=== PATIENT | male | born 1990 | race African-American/Black ===

== ENCOUNTER 2017-05-15 10:49 | Emergency (ER) | payer SELFPAY ==
[2017-05-15 11:34] LABS: #Basophils 0.1 thou/uL (0.0-0.2); #Eosinphils 0.4 thou/uL (0.0-0.7); #Lymphocytes 1.8 thou/uL (1.20-3.40); #Monocytes 0.7 thou/uL (0.11-0.59); #Neutrophils 2.5 thou/uL (1.40-6.50); %Basophils 1.5 % (0.0-1.0); %Monocytes 11.9 % (0.0-10.0); Hematocrit 44.4 % (42.0-52.0); Mean Platelet Volume 7.5 fL (7.4-10.4); Red Blood Cell (RBC) Count 4.94 mill/uL (4.70-6.10); White Blood Cell (WBC) Count 5.4 thou/uL (4.8-10.8)
[2017-05-15 11:55] LABS: Acetaminophen Less than 6.0 mcg/mL (10.0-30.0); Salicylate Less than 8.0 mg/dL (15.0-30.0)
[2017-05-15 11:56] LABS: ALT (SGPT) 11 U/L (8-55); AST (SGOT) 19 U/L (5-34); Alkaline Phosphatase 80 U/L (40-150); Anion Gap 13 mmol/L (10-20); BUN (Urea Nitrogen) 10 mg/dL (8.9-20.6); Bilirubin, Total 0.3 mg/dL (0.2-1.2); CK (CPK) 283 U/L (30-200); Calc. Creatinine Clearance 0 mL/min (70-130); Calcium 9.8 mg/dL (7.8-10.44); Carbon Dioxide 25 mmol/L (22-29); Chloride 103 mmol/L (98-107); Estimated GFR-MDRD Greater than 90; Globulin 3.8 g/dL (2.4-3.5)
[2017-05-15 12:11] LABS: Bilirubin Negative (Negative); Blood, Urine Negative (Negative); Glucose, Urine (Dipstick) Negative (Negative); Ketone, Urine Negative (Negative); Nitrite Negative (Negative); Protein, Urine (Dipstick) Negative (Neg-Trace); Urobilinogen 0.2 mg/dL (0.2-1.0)
[2017-05-15] MEDS ORDERED: busPIRone HCl 10 MG TAB PO SCH ×2 (12:15→21:00)
[2017-05-15 12:20] LABS: Amphetamine Not Detected (NotDetected); Methadone Not Detected (NotDetected); Methamphetamine Not Detected (NotDetected)
[2017-05-15] MEDS ORDERED: Bupivacaine PF 0.5% 30 ML VIAL ONE (16:57)
[2017-05-15] MEDS ORDERED: Betamet Acet/Betamet Na Ph 30 MG/5 ML VIAL ONE (16:57)
[2017-05-15] MEDS ORDERED: Sodium Chloride 0.9% 0 ML ONE (16:57)
[2017-05-15] MEDS ORDERED: Bacitracin Zinc Ointment 30 gm TUBE ONE (16:57)
[2017-05-15] MEDS ORDERED: Acetaminophen 500 MG TAB ONE (17:11)
== END 2017-05-15 22:14 ==
LOC: ERS 10:49
DX: R45.851 Suicidal ideations (principal); J45.909 Unspecified asthma, uncomplicated; F31.9 Bipolar disorder, unspecified; F41.9 Anxiety disorder, unspecified; F20.9 Schizophrenia, unspecified; F17.210 Nicotine dependence, cigarettes, uncomplicated; Z79.899 Other long term (current) drug therapy
CPT/HCPCS: 36415; 80053; 80306; 80307; 81003; 82550; 84443; 85025; 93005; A4216; J0702; J3490; S0020

== ENCOUNTER 2017-10-05 13:20 | Emergency (ER) | payer SELFPAY ==
[2017-10-05] MEDS ORDERED: Ibuprofen 200 MG TAB ONE (14:07)
[2017-10-05] MEDS ORDERED: Dexamethasone 4 mg/ml Vial ONE (14:07)
--- NOTE | 2017-10-05 14:18 | RAD ---
TWO VIEWS CHEST: DATE: 10/05/17. PROVIDED CLINICAL HISTORY: Cough. FINDINGS: Comparison is made with the study dated 11/05/2003. Cardiac and mediastinal silhouette is within norm al limits. Lungs appear clear. There is no pleural fluid or pneumothorax apparent. IMPRESSION: No evidence for an acute cardiopulmonary process. POS: [facility]
== END 2017-10-05 14:26 | disposition home or self-care (01) ==
LOC: ERS 13:20
DX: J20.8 Acute bronchitis due to other specified organisms (principal); J45.909 Unspecified asthma, uncomplicated; F31.9 Bipolar disorder, unspecified; F41.9 Anxiety disorder, unspecified; F20.9 Schizophrenia, unspecified; F17.210 Nicotine dependence, cigarettes, uncomplicated
CPT/HCPCS: 71046; J1100

== ENCOUNTER 2018-03-16 09:08 | Inpatient (IN) | payer SELFPAY ==
[2018-03-16 10:20] LABS: Bilirubin Negative (Negative); Blood, Urine Negative (Negative); Clarity CLEAR (Clear); Glucose, Urine (Dipstick) Negative (Negative); Leukocyte Negative (Negative); Nitrite Negative (Negative); Protein, Urine (Dipstick) Negative (Neg-Trace); pH, Urine 5.5 (5.0-9.0)
[2018-03-16 10:31] LABS: Amphetamine Not Detected (NotDetected); Barbiturates Screen Not Detected (NotDetected); Benzodiazepine Screen Not Detected (NotDetected); Cocaine Metabolite Screen Detected (NotDetected); Medtox Control Line Valid? VALID (VALID); Medtox Reader # READER 1; Methadone Not Detected (NotDetected); Methamphetamine Not Detected (NotDetected); Opiate Screen Not Detected (NotDetected); Oxycodone Screen Not Detected (NotDetected); Phencyclidine (PCP) Not Detected (NotDetected); THC/Cannabinoid Screen Not Detected (NotDetected); Tricyclic Screen Not Detected (NotDetected)
[2018-03-16 11:17] LABS: Hemoglobin 13.7 g/dL (14.0-18.0); Mean Corpuscular Hemoglobin 29.3 pg (27.0-31.0); Mean Platelet Volume 7.8 fL (7.4-10.4); Platelet Count 226 thou/uL (130-400); RBC Distribution Width 11.8 % (11.5-14.5); White Blood Cell (WBC) Count 6.4 thou/uL (4.8-10.8)
[2018-03-16 11:26] LABS: ALT (SGPT) 25 U/L (8-55); AST (SGOT) 67 U/L (5-34); Acetaminophen Less than 6.0 mcg/mL (10.0-30.0); Albumin 4.8 g/dL (3.5-5.0); Alcohol Less than 10 mg/dL (Less than 10); Alkaline Phosphatase 92 U/L (40-150); Anion Gap 15 mmol/L (10-20); BUN (Urea Nitrogen) 27 mg/dL (8.9-20.6); Bilirubin, Total 0.6 mg/dL (0.2-1.2); Calc. Creatinine Clearance 0 mL/min (70-130); Calcium 9.8 mg/dL (7.8-10.44); Carbon Dioxide 24 mmol/L (22-29); Chloride 99 mmol/L (98-107); Estimated GFR-MDRD 70; Globulin 3.7 g/dL (2.4-3.5); Glucose 114 mg/dL (70-105); Potassium 4.4 mmol/L (3.5-5.1); Protein, Total 8.5 g/dL (6.0-8.3); Salicylate Less than 8.0 mg/dL (15.0-30.0); Sodium 134 mmol/L (136-145)
[2018-03-16 11:37] LABS: Band 4 % (5-11); Eosinophils 1 % (0-10); Lymphocytes 27 % (21-51); MDiff Complete? YES; Monocytes 3 % (0-10); Neutrophil 54 % (42-75); RBC Morphology Normal; Reactive Lymphocytes 11 % (0-10)
[2018-03-16] MEDS ORDERED: Acetaminophen 325 MG TAB PO PRN (14:21)
[2018-03-16] MEDS ORDERED: Loperamide HCl 2 MG CAP PO PRN (14:21)
[2018-03-16] MEDS ORDERED: Senokot 8.6 MG TAB PO PRN (14:21)
[2018-03-16] MEDS ORDERED: Milk Of Magnesia 30 ML UDCUP PO PRN (14:21)
[2018-03-16] MEDS ORDERED: Eucerin (Mineral Oil/Petrolatum,White) 30 gm Jar TOP PRN (14:21)
[2018-03-16] MEDS ORDERED: Zolpidem Tartrate 5 MG TAB PO PRN (14:21)
[2018-03-16] MEDS ORDERED: Artificial Tear Sol 15 ML BOT EA EYE PRN (14:21)
[2018-03-16] MEDS ORDERED: Loratadine 10 MG TAB PO PRN (14:21)
[2018-03-16] MEDS ORDERED: Ondansetron HCl/PF 4 MG/2 ML Vial IVP PRN (14:21)
[2018-03-16] MEDS ORDERED: cloNIDine 0.1 MG TAB PO PRN (14:21)
[2018-03-16] MEDS ORDERED: Chloraseptic Spray 180 ml Bottle PO PRN (14:21)
[2018-03-16] MEDS ORDERED: HYDROcodone/Acetaminophen 5/325 mg Tablet PO PRN (14:21)
[2018-03-16] MEDS ORDERED: Diabetic Tussin 200 MG/10 ML UDCUP PO PRN (14:21)
[2018-03-16] MEDS ORDERED: Ondansetron ODT 4 MG TAB PO PRN (14:21)
[2018-03-16] MEDS ORDERED: Sodium Chloride 0.65% Nasal 44 ML BOT EA NARE PRN (14:21)
[2018-03-16 14:28] VITALS: BMI 30.1
--- NOTE | 2018-03-16 14:49 | HP ---
PRIMARY CARE PHYSICIAN: City call admission. REASON FOR ADMISSION: Acute kidney failure, acute rhabdomyolysis, homicidal and suicidal ideation. HISTORY OF PRESENT ILLNESS: This is a 28-year-old -[place] male, who was brought to emergency room by police department for medical clearance. The patient has underlying history of schizophrenia as well as polysubstance abuse. The patient used cocaine yesterday. He was having hallucination. The patient reports that he has visual and auditory hallucinations. He has underlying psychiatric problem and he was not able to take any medication for the last several weeks. He was recently in [facility] and he was recently released from [facility]. His prescription was sent to [facility], but he was not able to pick it up. At home, he was feeling homicidal as well as suicidal and he planned to stab himself with a knife, and as per report, the patient gave his knife to [facility]. The patient was not medically stable for discharge from emergency room, because of acute kidney failure and rhabdomyolysis. The patient was continued to have suicidal and homicidal ideation in the emergency room when I was getting history from him. The patient denies any chest pain, palpitations, shortness of breath. He denies any dizziness, UTI symptoms, constipation, diarrhea. Patient reports that he snorted cocaine through his left side of nostril that a little bit hurts. He denies any sinus headaches. He denies any constipation, diarrhea, melena, or hematochezia. In the emergency room, patient was given IV fluid. Subsequently, patient is being admitted to the medical floor for treatment. REVIEW OF SYSTEMS: The following complete review of systems was negative, unless otherwise mentioned in the HPI or below: Constitutional: Weight loss or gain, ability to conduct usual activities. Skin: Rash, itching. Eyes: Double vision, pain. ENT/Mouth: Nose bleeding, neck stiffness, pain, tenderness. Cardiovascular: Palpitations, dyspnea on exertion, orthopnea. Respiratory: Shortness of breath, wheezing, cough, hemoptysis, fever, or night sweats. Gastrointestinal: Poor appetite, abdominal pain, heartburn, nausea, vomiting, constipation, or diarrhea. Genitourinary: Urgency, frequency, dysuria, nocturia. Musculoskeletal: Pain, swelling. Neurologic/Psychiatric: Anxiety, depression. Allergy/Immunologic: Skin rash, bleeding tendency. Please see my HPI for pertinent positive and negative. All other review of system reviewed and negative except as mentioned in the HPI. PAST MEDICAL HISTORY: History of asthma/bronchitis. History of sickle cell trait. PAST PSYCHIATRIC HISTORY: Anxiety disorder, depression, bipolar disorder, schizophrenia, history of suicidal attempts by hanging, history of suicidal attempt by ingesting rat poison in 2006 as well as in 2010. PAST SURGICAL HISTORY: Tonsillectomy and adenectomy. SOCIAL HISTORY: Patient smokes everyday basis. He abuses cocaine and marijuana periodically. He drinks alcohol every weekend. He smokes about a half-pack per day. FAMILY HISTORY: No strong family history of premature coronary artery disease, stroke, or cancer. ALLERGIES: No known drug allergy. CURRENT HOME MEDICATIONS: Seroquel 200 mg p.o. b.i.d., Cymbalta 20 mg daily, buspirone 7.5 mg p.o. b.i.d., gabapentin 300 mg twice daily. EMERGENCY ROOM COURSE: The patient has received IV fluid. PHYSICAL EXAMINATION: VITAL SIGNS: On arrival, blood pressure 126/94, pulse 88, respiratory rate 20, temperature 98.6, saturation 98% on room air, weight 74.8 kilograms. GENERAL: The patient is currently alert, awake, in no obvious acute distress. HEENT: Head: Normocephalic, atraumatic. Eyes: Pupils round, reactive to light. Conjunctivae erythematous. No discharge. No nystagmus. ENT: Left side of nose covered with a cotton. Moist mucous membranes. No oral lesion. No pharyngeal erythema, no exudate. NECK: Supple, no JVD, no thyromegaly, no carotid bruit, no jugular venous distention. LUNGS: Clear to auscultation without any rhonchi or rales. CARDIAC: S1 and S2 regular. No murmur, no gallop, no rub. ABDOMEN: Soft, bowel sounds present. Abdominal wall discomfort noted, but no peritoneal sign, no guarding, no rigidity, no rebound, no organomegaly, no mass , no suprapubic tenderness. BACK EXAMINATION: Unremarkable, no CVA tenderness. EXTREMITIES: Upper extremities, passive movement of all joints are normal. Lower extremities, no edema. Good peripheral pulsation. SKIN: No skin rash. HEMATOLOGICAL SYSTEM: No lymphadenopathy. PSYCHIATRIC: Normal affect. The patient has suicidal and homicidal ideation. SIGNIFICANT LABORATORY DATA: 1. EKG showing sinus arrhythmia, normal sinus rhythm. 2. Urine drug screen positive for cocaine. 3. Urinalysis normal. 4. CBC: WBC 6.4, hemoglobin 13.7, platelets 226 with bandemia 4. 5. BMP: Sodium 134, potassium 4.4, chloride 99, carbon dioxide 24, BUN 27, creatinine 1.46, anion gap 15, glucose 114, calcium 9.8. 6. LFT: AST 67, ALT 25, alkaline phosphatase 92, albumin 4.8. 7. TSH 3.08. 8. CK of 5667. 9. Serum drug screen negative. ASSESSMENT AND PLAN: 1. Acute rhabdomyolysis, most likely related with the cocaine abuse. The patient's total CK is significantly abnormal. He has associated acute kidney injury. The patient is at risk for acute kidney failure. The patient will need hydration. The patient will need monitoring of total CK level. The patient will be given IV fluid with NS at 125 mL per hour. We will monitor CK level and renal function. 2. Acute kidney injury, likely due to dehydration/cocaine abuse/ rhabdomyolysis. The patient will be given gentle IV fluid and we will repeat BMP tomorrow. We will avoid nephrotoxin agent. 3. Abnormal liver function tests, AST more than ALT, likely due to his alcohol use plus rhabdomyolysis. We will repeat labs tomorrow. 4. Mild hyponatremia, likely due to dehydration. Patient will be given IV fluid and we will repeat BMP tomorrow. 5. Bandemia, likely related with us cocaine abuse. Does not have any clinical evidence of sepsis at this point. 6. Polysubstance abuse. Patient has smoking, alcohol, marijuana, and cocaine abuse history. The patient is given counseling to avoid polysubstance abuse. Healthy lifestyle measures discussed with the patient. 7. Homicidal and suicidal ideation. Once patient is medically cleared, at that point we will consult [facility] again and patient will need inpatient psychiatric facility treatment after discharge. We will provide suicide precaution while in hospital. 8. Anxiety, depression, bipolar disorder, as well as schizophrenia. We will continue patient's home medications, Seroquel, Cymbalta, buspirone, and gabapentin as per home dosage. 9. Deep venous thrombosis prophylaxis. Lovenox 40 mg subcutaneous daily. 10. Gastrointestinal prophylaxis. Pepcid 20 mg p.o. b.i.d. 11. Code status: The patient is FULL CODE. Patient does not have any surrogate decision maker. Disposition plan based on clinical course. We are expecting patient's stay in hospital more than 2 midnights. Plan of care discussed with the patient in detail. KWESI
[2018-03-16] MEDS: Sodium Chloride 0.9% 1,000 ML IV SCH (16:34)
[2018-03-16] MEDS: busPIRone HCl 5 MG TAB PO SCH (22:17)
[2018-03-16] MEDS: Gabapentin 300 MG CAP PO SCH (22:17)
[2018-03-16] MEDS: Famotidine 20 MG TAB PO SCH (22:18)
[2018-03-17] MEDS: Sodium Chloride 0.9% 1,000 ML IV SCH ×4 (01:35→20:56)
[2018-03-17 04:57] LABS: #Eosinphils 0.3 thou/uL (0.0-0.7); #Lymphocytes 1.8 thou/uL (1.20-3.40); #Monocytes 0.5 thou/uL (0.11-0.59); #Neutrophils 1.2 thou/uL (1.40-6.50); %Eosinophils 7.6 % (0.0-10.0); %Lymphocytes 46.7 % (21.0-51.0); %Monocytes 13.3 % (0.0-10.0); %Neutrophils 31.4 % (42.0-75.0); Hemoglobin 11.7 g/dL (14.0-18.0); Mean Corpuscular HGB CONC 34.9 g/dL (32.0-36.0); Mean Corpuscular Volume 85.8 fL (78.0-98.0); Mean Platelet Volume 7.9 fL (7.4-10.4); Platelet Count 194 thou/uL (130-400); RBC Distribution Width 11.7 % (11.5-14.5); Red Blood Cell (RBC) Count 3.91 mill/uL (4.70-6.10); White Blood Cell (WBC) Count 3.8 thou/uL (4.8-10.8)
[2018-03-17 05:14] LABS: Anion Gap 14 mmol/L (10-20); BUN (Urea Nitrogen) 13 mg/dL (8.9-20.6); CK (CPK) 3232 U/L (30-200); Calc. Creatinine Clearance 125 mL/min (70-130); Calcium 8.4 mg/dL (7.8-10.44); Carbon Dioxide 19 mmol/L (22-29); Chloride 111 mmol/L (98-107); Estimated GFR-MDRD Greater than 90; Glucose 102 mg/dL (70-105); Potassium 4.1 mmol/L (3.5-5.1); Sodium 140 mmol/L (136-145)
[2018-03-17] MEDS: busPIRone HCl 5 MG TAB PO SCH ×2 (09:23→20:54)
[2018-03-17] MEDS: Famotidine 20 MG TAB PO SCH ×2 (09:24→20:54)
[2018-03-17] MEDS: Gabapentin 300 MG CAP PO SCH ×2 (09:24→20:54)
[2018-03-17] MEDS: Enoxaparin Sodium 40 MG/0.4 ML SYRINGE SC SCH (09:26)
--- NOTE | 2018-03-17 12:00 | PDOC.PN ---
- Subjective Encounter Start Date: 03/17/18 Encounter Start Time: 08:40 -: old records requested/rev Patient seen and examined. No new complaints. No overnight events - Objective Resuscitation Status: Resuscitation Status FULL:Full Resuscitation MAR Reviewed: Yes Vital Signs & Weight: Vital Signs (12 hours) Temp Pulse Resp BP BP Pulse Ox 03/17/18 11:13 98.6 F 77 18 109/71 96 03/17/18 08:00 98.2 F 67 18 97 03/17/18 07:39 98.2 F 67 18 120/74 97 03/17/18 04:00 98.7 F 72 16 109/69 96 03/17/18 00:00 98.9 F 84 18 117/67 96 Weight Weight 164 lb 14.492 oz I&O: 03/16/18 03/17/18 03/18/18 06:59 06:59 06:59 Intake Total 360 500 Balance 360 500 Result Diagrams: 03/17/18 03:53 03/17/18 03:53 Phys Exam - Physical Examination Constitutional: NAD HEENT: PERRLA, moist MMs, sclera anicteric Neck: no JVD, supple Respiratory: no wheezing, no rales, no rhonchi Cardiovascular: RRR, no significant murmur, no rub Gastrointestinal: soft, non-tender, no distention, positive bowel sounds Musculoskeletal: no edema, pulses present Neurological: non-focal, normal sensation, moves all 4 limbs Lymphatic: no nodes Psychiatric: normal affect, A&O x 3 Skin: no rash, normal turgor Dx/Plan (1) Acute kidney failure Status: Resolved (2) Homicidal ideation Code(s): R45.850 - HOMICIDAL IDEATIONS Status: Acute (3) Polysubstance abuse Code(s): F19.10 - OTHER PSYCHOACTIVE SUBSTANCE ABUSE, UNCOMPLICATED Status: Acute (4) Rhabdomyolysis Code(s): M62.82 - RHABDOMYOLYSIS Status: Acute (5) Suicidal ideations Code(s): R45.851 - SUICIDAL IDEATIONS Status: Acute (6) Anxiety and depression Code(s): F41.9 - ANXIETY DISORDER, UNSPECIFIED; F32.9 - MAJOR DEPRESSIVE DISORDER, SINGLE EPISODE, UNSPECIFIED Status: Chronic (7) Schizophrenia Code(s): F20.9 - SCHIZOPHRENIA, UNSPECIFIED Status: Chronic - Plan cont current plan of care * continue IVF * repeat CK level tomorrow * medication reviewed as below * symptomatic treatment * will call MR when pt is medically stable * will need in psych facility. Review of Systems - Review of Systems Eyes: negative: Pain, Vision Change, Conjunctivae Inflammation, Eyelid Inflammation, Redness, Other ENT: negative: Ear Pain, Ear Discharge, Nose Pain, Nose Discharge, Nose Congestion, Mouth Pain, Mouth Swelling, Throat Pain, Throat Swelling, Other Respiratory: negative: Cough, Dry, Shortness of Breath, Hemoptysis, SOB with Excertion, Pleuritic Pain, Sputum, Wheezing Cardiovascular: negative: chest pain, palpitations, orthopnea, paroxysmal nocturnal dyspnea, edema, light headedness, other Gastrointestinal: negative: Nausea, Vomiting, Abdominal Pain, Diarrhea, Constipation, Melena, Hematochezia, Other Genitourinary: negative: Dysuria, Frequency, Incontinence, Hematuria, Retention , Other Musculoskeletal: negative: Neck Pain, Shoulder Pain, Arm Pain, Back Pain, Hand Pain, Leg Pain, Foot Pain, Other Skin: negative: Rash, Lesions, Jordan, Bruising, Other - Medications/Allergies Allergies/Adverse Reactions: Allergies Allergy/AdvReac Type Severity Reaction Status Date / Time No Known Allergies Allergy Verified 03/16/18 14:48 Medications: Current Medications Acetaminophen (Tylenol) 650 mg PO Q4H PRN PRN Reason: Headache/Fever or Pain Hydrocodone Bitart/Acetaminophen ([place] 5/325) 1 tab PO Q4H PRN PRN Reason: Moderate Pain (4-6) Artificial Tears (Tears Renewed 15ml Bottle) 0 drop EA EYE PRN PRN PRN Reason: Dry Eyes Buspirone HCl (Buspar) 7.5 mg PO BID [facility] Last Admin: 03/17/18 09:23 Dose: 7.5 mg Clonidine (Catapres) 0.1 mg PO Q4H PRN PRN Reason: Systolic BP > 180 Duloxetine HCl (Cymbalta) 20 mg PO DAILY [facility] Last Admin: 03/17/18 09:24 Dose: 20 mg Enoxaparin Sodium (Lovenox) 40 mg SC 0900 [facility] Last Admin: 03/17/18 09:26 Dose: Not Given Famotidine (Pepcid) 20 mg PO BID [facility] Last Admin: 03/17/18 09:24 Dose: 20 mg Gabapentin (Neurontin) 300 mg PO BID [facility] Last Admin: 03/17/18 09:24 Dose: 300 mg Guaifenesin (Robitussin Sf) 200 mg PO Q4H PRN PRN Reason: Cough Sodium Chloride (Normal Saline 0.9%) 1,000 mls @ 125 mls/hr IV .Q8H [facility] Last Admin: 03/17/18 09:36 Dose: 1,000 mls Loperamide HCl (Imodium) 2 mg PO PRN PRN PRN Reason: Diarrhea/Loose Stools Loratadine (Claritin) 10 mg PO DAILYPRN PRN PRN Reason: Sinus Symptoms Magnesium Hydroxide (Milk Of Magnesium) 30 ml PO DAILYPRN PRN PRN Reason: Constipation Mineral Oil/White Petrolatum (Eucerin Cream) 0 gm TOP BIDPRN PRN PRN Reason: Dry Skin Ondansetron HCl (Zofran Odt) 4 mg PO Q6H PRN PRN Reason: Nausea/Vomiting Ondansetron HCl (Zofran) 4 mg IVP Q6H PRN PRN Reason: Nausea/Vomiting Phenol (Chloraseptic [place] 180 Ml Bot) 0 ml PO PRN PRN PRN Reason: Sore Throat Quetiapine Fumarate (Seroquel) 200 mg PO BID [facility] Last Admin: 03/17/18 09:24 Dose: 200 mg Senna (Senokot) 2 tab PO HSPRN PRN PRN Reason: Constipation Sodium Chloride ([place] Nasal [place] 0.65%) 0 ml EA NARE QIDPRN PRN PRN Reason: Nasal Congestion Zolpidem Tartrate (Ambien) 5 mg PO HSPRN PRN PRN Reason: Insomnia
[2018-03-18] MEDS: Sodium Chloride 0.9% 1,000 ML IV SCH ×3 (03:59→20:44)
[2018-03-18] MEDS: busPIRone HCl 5 MG TAB PO SCH ×2 (08:14→20:43)
[2018-03-18] MEDS: Gabapentin 300 MG CAP PO SCH ×2 (08:14→20:43)
[2018-03-18] MEDS: Famotidine 20 MG TAB PO SCH ×2 (08:16→20:44)
[2018-03-18] MEDS: Enoxaparin Sodium 40 MG/0.4 ML SYRINGE SC SCH (08:16)
--- NOTE | 2018-03-18 11:24 | PDOC.PN ---
- Subjective Encounter Start Date: 03/18/18 Encounter Start Time: 09:15 Patient seen and examined. No new complaints. No overnight events - Objective Resuscitation Status: Resuscitation Status FULL:Full Resuscitation MAR Reviewed: Yes Vital Signs & Weight: Vital Signs (12 hours) Temp Pulse Resp BP Pulse Ox 03/18/18 08:05 98.1 F 69 16 96 03/18/18 07:41 98.1 F 69 16 126/82 96 Weight Weight 164 lb 14.492 oz I&O: 03/17/18 03/18/18 03/19/18 06:59 06:59 06:59 Intake Total 360 900 Balance 360 900 Result Diagrams: 03/17/18 03:53 03/17/18 03:53 Phys Exam - Physical Examination Constitutional: NAD HEENT: PERRLA, moist MMs, sclera anicteric Neck: no JVD, supple Respiratory: no wheezing, no rales, no rhonchi Cardiovascular: RRR, no significant murmur, no rub Gastrointestinal: soft, non-tender, no distention, positive bowel sounds Musculoskeletal: no edema, pulses present Neurological: non-focal, normal sensation Lymphatic: no nodes Psychiatric: normal affect, A&O x 3 Skin: no rash, normal turgor Dx/Plan (1) Acute kidney failure Status: Resolved (2) Homicidal ideation Code(s): R45.850 - HOMICIDAL IDEATIONS Status: Acute (3) Polysubstance abuse Code(s): F19.10 - OTHER PSYCHOACTIVE SUBSTANCE ABUSE, UNCOMPLICATED Status: Acute (4) Rhabdomyolysis Code(s): M62.82 - RHABDOMYOLYSIS Status: Acute (5) Suicidal ideations Code(s): R45.851 - SUICIDAL IDEATIONS Status: Acute (6) Anxiety and depression Code(s): F41.9 - ANXIETY DISORDER, UNSPECIFIED; F32.9 - MAJOR DEPRESSIVE DISORDER, SINGLE EPISODE, UNSPECIFIED Status: Chronic (7) Schizophrenia Code(s): F20.9 - SCHIZOPHRENIA, UNSPECIFIED Status: Chronic - Plan cont current plan of care * CK improving * continue IVF * will recheck CK tomorrow * if number is OK, tomorrow will consult [facility] for discharge placement * medication reviewed as below * symptomatic treatment * continue bedside sitter. Review of Systems - Review of Systems ENT: negative: Ear Pain, Ear Discharge, Nose Pain, Nose Discharge, Nose Congestion, Mouth Pain, Mouth Swelling, Throat Pain, Throat Swelling, Other Respiratory: negative: Cough, Dry, Shortness of Breath, Hemoptysis, SOB with Excertion, Pleuritic Pain, Sputum, Wheezing Cardiovascular: negative: chest pain, palpitations, orthopnea, paroxysmal nocturnal dyspnea, edema, light headedness, other Gastrointestinal: negative: Nausea, Vomiting, Abdominal Pain, Diarrhea, Constipation, Melena, Hematochezia, Other Genitourinary: negative: Dysuria, Frequency, Incontinence, Hematuria, Retention , Other Musculoskeletal: negative: Neck Pain, Shoulder Pain, Arm Pain, Back Pain, Hand Pain, Leg Pain, Foot Pain, Other - Medications/Allergies Allergies/Adverse Reactions: Allergies Allergy/AdvReac Type Severity Reaction Status Date / Time No Known Allergies Allergy Verified 03/16/18 14:48 Medications: Current Medications Acetaminophen (Tylenol) 650 mg PO Q4H PRN PRN Reason: Headache/Fever or Pain Hydrocodone Bitart/Acetaminophen ([place] 5/325) 1 tab PO Q4H PRN PRN Reason: Moderate Pain (4-6) Artificial Tears (Tears Renewed 15ml Bottle) 0 drop EA EYE PRN PRN PRN Reason: Dry Eyes Buspirone HCl (Buspar) 7.5 mg PO BID [facility] Last Admin: 03/18/18 08:14 Dose: 7.5 mg Clonidine (Catapres) 0.1 mg PO Q4H PRN PRN Reason: Systolic BP > 180 Duloxetine HCl (Cymbalta) 20 mg PO DAILY [facility] Last Admin: 03/18/18 08:15 Dose: 20 mg Enoxaparin Sodium (Lovenox) 40 mg SC 0900 [facility] Last Admin: 03/18/18 08:16 Dose: Not Given Famotidine (Pepcid) 20 mg PO BID [facility] Last Admin: 03/18/18 08:16 Dose: 20 mg Gabapentin (Neurontin) 300 mg PO BID [facility] Last Admin: 03/18/18 08:14 Dose: 300 mg Guaifenesin (Robitussin Sf) 200 mg PO Q4H PRN PRN Reason: Cough Sodium Chloride (Normal Saline 0.9%) 1,000 mls @ 125 mls/hr IV .Q8H [facility] Last Admin: 03/18/18 03:59 Dose: Not Given Loperamide HCl (Imodium) 2 mg PO PRN PRN PRN Reason: Diarrhea/Loose Stools Loratadine (Claritin) 10 mg PO DAILYPRN PRN PRN Reason: Sinus Symptoms Magnesium Hydroxide (Milk Of Magnesium) 30 ml PO DAILYPRN PRN PRN Reason: Constipation Mineral Oil/White Petrolatum (Eucerin Cream) 0 gm TOP BIDPRN PRN PRN Reason: Dry Skin Ondansetron HCl (Zofran Odt) 4 mg PO Q6H PRN PRN Reason: Nausea/Vomiting Ondansetron HCl (Zofran) 4 mg IVP Q6H PRN PRN Reason: Nausea/Vomiting Phenol (Chloraseptic [place] 180 Ml Bot) 0 ml PO PRN PRN PRN Reason: Sore Throat Quetiapine Fumarate (Seroquel) 200 mg PO BID [facility] Last Admin: 03/18/18 08:14 Dose: 200 mg Senna (Senokot) 2 tab PO HSPRN PRN PRN Reason: Constipation Sodium Chloride ([place] Nasal [place] 0.65%) 0 ml EA NARE QIDPRN PRN PRN Reason: Nasal Congestion Zolpidem Tartrate (Ambien) 5 mg PO HSPRN PRN PRN Reason: Insomnia
[2018-03-19] MEDS: busPIRone HCl 5 MG TAB PO SCH ×2 (08:46→20:23)
[2018-03-19] MEDS: Famotidine 20 MG TAB PO SCH ×3 (08:47→20:25)
[2018-03-19] MEDS: Gabapentin 300 MG CAP PO SCH ×2 (08:47→20:23)
[2018-03-19] MEDS: Sodium Chloride 0.9% 1,000 ML IV SCH ×2 (08:47→15:39)
[2018-03-19] MEDS: Enoxaparin Sodium 40 MG/0.4 ML SYRINGE SC SCH (08:48)
--- NOTE | 2018-03-19 12:39 | PDOC.PN ---
- Subjective Encounter Start Date: 03/19/18 Encounter Start Time: 09:15 Patient seen and examined. No new complaints. No overnight events - Objective Resuscitation Status: Resuscitation Status FULL:Full Resuscitation MAR Reviewed: Yes Vital Signs & Weight: Vital Signs (12 hours) Temp Pulse Resp BP Pulse Ox 03/19/18 07:45 98 F 78 16 96 03/19/18 07:33 98 F 78 16 111/75 96 Weight Weight 164 lb 14.492 oz I&O: 03/18/18 03/19/18 03/20/18 06:59 06:59 06:59 Intake Total 900 2375 Balance 900 2375 Result Diagrams: 03/17/18 03:53 03/17/18 03:53 Phys Exam - Physical Examination Constitutional: NAD HEENT: PERRLA, moist MMs, sclera anicteric Neck: no JVD, supple Respiratory: no wheezing, no rales, no rhonchi Cardiovascular: RRR, no significant murmur, no rub Gastrointestinal: soft, non-tender, no distention, positive bowel sounds Musculoskeletal: no edema, pulses present Neurological: non-focal, normal sensation, moves all 4 limbs Psychiatric: normal affect, A&O x 3 Skin: no rash, normal turgor Dx/Plan (1) Acute kidney failure Status: Resolved (2) Homicidal ideation Code(s): R45.850 - HOMICIDAL IDEATIONS Status: Acute (3) Polysubstance abuse Code(s): F19.10 - OTHER PSYCHOACTIVE SUBSTANCE ABUSE, UNCOMPLICATED Status: Acute (4) Rhabdomyolysis Code(s): M62.82 - RHABDOMYOLYSIS Status: Acute (5) Suicidal ideations Code(s): R45.851 - SUICIDAL IDEATIONS Status: Acute (6) Anxiety and depression Code(s): F41.9 - ANXIETY DISORDER, UNSPECIFIED; F32.9 - MAJOR DEPRESSIVE DISORDER, SINGLE EPISODE, UNSPECIFIED Status: Chronic (7) Schizophrenia Code(s): F20.9 - SCHIZOPHRENIA, UNSPECIFIED Status: Chronic - Plan cont current plan of care * CK is little high but renal function is normal and pt is tolerating diet * advised oral fluid intake * his ck will continue to improve with oral hydration * will call [facility] today as he will need psych placement * medication reviewed as below * symptomatic treatment. Review of Systems - Review of Systems Eyes: negative: Pain, Vision Change, Conjunctivae Inflammation, Eyelid Inflammation, Redness, Other ENT: negative: Ear Pain, Ear Discharge, Nose Pain, Nose Discharge, Nose Congestion, Mouth Pain, Mouth Swelling, Throat Pain, Throat Swelling, Other Respiratory: negative: Cough, Dry, Shortness of Breath, Hemoptysis, SOB with Excertion, Pleuritic Pain, Sputum, Wheezing Cardiovascular: negative: chest pain, palpitations, orthopnea, paroxysmal nocturnal dyspnea, edema, light headedness, other Gastrointestinal: negative: Nausea, Vomiting, Abdominal Pain, Diarrhea, Constipation, Melena, Hematochezia, Other Genitourinary: negative: Dysuria, Frequency, Incontinence, Hematuria, Retention , Other Musculoskeletal: negative: Neck Pain, Shoulder Pain, Arm Pain, Back Pain, Hand Pain, Leg Pain, Foot Pain, Other Skin: negative: Rash, Lesions, Jordan, Bruising, Other - Medications/Allergies Allergies/Adverse Reactions: Allergies Allergy/AdvReac Type Severity Reaction Status Date / Time No Known Allergies Allergy Verified 03/16/18 14:48 Medications: Current Medications Acetaminophen (Tylenol) 650 mg PO Q4H PRN PRN Reason: Headache/Fever or Pain Hydrocodone Bitart/Acetaminophen ([place] 5/325) 1 tab PO Q4H PRN PRN Reason: Moderate Pain (4-6) Artificial Tears (Tears Renewed 15ml Bottle) 0 drop EA EYE PRN PRN PRN Reason: Dry Eyes Buspirone HCl (Buspar) 7.5 mg PO BID [facility] Last Admin: 03/19/18 08:46 Dose: 7.5 mg Clonidine (Catapres) 0.1 mg PO Q4H PRN PRN Reason: Systolic BP > 180 Duloxetine HCl (Cymbalta) 20 mg PO DAILY [facility] Last Admin: 03/19/18 08:47 Dose: 20 mg Enoxaparin Sodium (Lovenox) 40 mg SC 0900 [facility] Last Admin: 03/19/18 08:48 Dose: 40 mg Famotidine (Pepcid) 20 mg PO BID [facility] Last Admin: 03/19/18 08:47 Dose: 20 mg Gabapentin (Neurontin) 300 mg PO BID [facility] Last Admin: 03/19/18 08:47 Dose: 300 mg Guaifenesin (Robitussin Sf) 200 mg PO Q4H PRN PRN Reason: Cough Sodium Chloride (Normal Saline 0.9%) 1,000 mls @ 125 mls/hr IV .Q8H [facility] Last Admin: 03/19/18 08:47 Dose: Not Given Loperamide HCl (Imodium) 2 mg PO PRN PRN PRN Reason: Diarrhea/Loose Stools Loratadine (Claritin) 10 mg PO DAILYPRN PRN PRN Reason: Sinus Symptoms Magnesium Hydroxide (Milk Of Magnesium) 30 ml PO DAILYPRN PRN PRN Reason: Constipation Mineral Oil/White Petrolatum (Eucerin Cream) 0 gm TOP BIDPRN PRN PRN Reason: Dry Skin Ondansetron HCl (Zofran Odt) 4 mg PO Q6H PRN PRN Reason: Nausea/Vomiting Ondansetron HCl (Zofran) 4 mg IVP Q6H PRN PRN Reason: Nausea/Vomiting Phenol (Chloraseptic [place] 180 Ml Bot) 0 ml PO PRN PRN PRN Reason: Sore Throat Quetiapine Fumarate (Seroquel) 200 mg PO BID [facility] Last Admin: 03/19/18 08:47 Dose: 200 mg Senna (Senokot) 2 tab PO HSPRN PRN PRN Reason: Constipation Sodium Chloride ([place] Nasal [place] 0.65%) 0 ml EA NARE QIDPRN PRN PRN Reason: Nasal Congestion Zolpidem Tartrate (Ambien) 5 mg PO HSPRN PRN PRN Reason: Insomnia
[2018-03-20] MEDS: Sodium Chloride 0.9% 1,000 ML IV SCH ×3 (00:06→16:41)
[2018-03-20] MEDS: Gabapentin 300 MG CAP PO SCH ×2 (08:38→20:18)
[2018-03-20] MEDS: busPIRone HCl 5 MG TAB PO SCH ×2 (08:39→20:18)
[2018-03-20] MEDS: Enoxaparin Sodium 40 MG/0.4 ML SYRINGE SC SCH (08:40)
[2018-03-20] MEDS: Famotidine 20 MG TAB PO SCH ×2 (12:11→20:18)
--- NOTE | 2018-03-20 12:12 | DIS ---
PRIMARY CARE PHYSICIAN: [facility] call admission. DATE OF ADMISSION: 03/16/2018 DATE OF DISCHARGE: 03/20/2018 DISCHARGE DISPOSITION: Psych facility. PRIMARY DISCHARGE DIAGNOSES: 1. Rhabdomyolysis. 2. Acute kidney failure. 3. Cocaine abuse. 4. Homicidal and suicidal ideation. SECONDARY DISCHARGE DIAGNOSES: Anxiety, depression, schizophrenia, polysubstance abuse. PRIMARY PROCEDURE/OPERATION: None. RADIOLOGICAL INVESTIGATION: None. SIGNIFICANT LABORATORY: Creatinine 0.94. CK 1802, hemoglobin 11.7. Urinalysis normal. Urine drug screen positive for cocaine. DISCHARGE MEDICATIONS: The patient will continue all his previous psychiatric medications, buspirone 7.5 mg p.o. b.i.d., Cymbalta 60 mg p.o. b.i.d., gabapentin 300 mg p.o. b.i.d., Seroquel 200 mg p.o. b.i.d. CONTRAINDICATIONS: None. CODE STATUS: FULL CODE. INPATIENT CONSULTANTS: [facility]. TEST RESULTS PENDING ON DISCHARGE: None. ALLERGIES: No known drug allergy. DISCHARGE PLAN: Post hospital, the patient will follow up with the psychiatrist. HOSPITAL COURSE: A 28-year-old male who was admitted by me on 03/16/2018. Please see my HPI for fur ther details. The patient was brought to ER for medical clearance. At that time, he was found with acute rhabdomyolysis. This patient was having active suicidal or homicidal ideation. He abused coca ine before admission. He had rhabdomyolysis with acute kidney failure that was improved with IV flui d. The patient's renal function improved to normal. His CK is going down. The patient is medically stable. We consulted [facility] for psych placement. Once we have psych facility arranged, then we will consider discharging him to psych facility. The patient is seen and examined at bedside today. The patient is hemodynamically stable. His exami nation is completely normal. He is asymptomatic.
--- NOTE | 2018-03-20 14:29 | PDOC.PN ---
- Subjective Encounter Start Date: 03/20/18 Encounter Start Time: 14:28 -: old records requested/rev Patient seen and examined. No new complaints. No overnight events - Objective Resuscitation Status: Resuscitation Status FULL:Full Resuscitation MAR Reviewed: Yes Vital Signs & Weight: Vital Signs (12 hours) Temp Pulse Resp BP Pulse Ox 03/20/18 08:28 98.2 F 69 16 98 03/20/18 08:16 98.2 F 69 16 112/69 98 Weight Weight 164 lb 14.492 oz I&O: 03/19/18 03/20/18 03/21/18 06:59 06:59 06:59 Intake Total 2375 2400 Balance 2375 2400 Result Diagrams: 03/17/18 03:53 03/17/18 03:53 Phys Exam - Physical Examination Constitutional: NAD HEENT: PERRLA, moist MMs, sclera anicteric Neck: no JVD, supple Respiratory: no wheezing, no rales, no rhonchi Cardiovascular: RRR, no significant murmur, no rub Gastrointestinal: soft, non-tender, no distention, positive bowel sounds Musculoskeletal: no edema, pulses present Neurological: non-focal, normal sensation, moves all 4 limbs Psychiatric: normal affect, A&O x 3 Skin: no rash, normal turgor Dx/Plan (1) Acute kidney failure Status: Resolved (2) Homicidal ideation Code(s): R45.850 - HOMICIDAL IDEATIONS Status: Acute (3) Polysubstance abuse Code(s): F19.10 - OTHER PSYCHOACTIVE SUBSTANCE ABUSE, UNCOMPLICATED Status: Acute (4) Rhabdomyolysis Code(s): M62.82 - RHABDOMYOLYSIS Status: Acute (5) Suicidal ideations Code(s): R45.851 - SUICIDAL IDEATIONS Status: Acute (6) Anxiety and depression Code(s): F41.9 - ANXIETY DISORDER, UNSPECIFIED; F32.9 - MAJOR DEPRESSIVE DISORDER, SINGLE EPISODE, UNSPECIFIED Status: Chronic (7) Schizophrenia Code(s): F20.9 - SCHIZOPHRENIA, UNSPECIFIED Status: Chronic - Plan cont current plan of care * medication reviewed as below * symptomatic treatment * stable for discharge if psych facility arranged * ck is continue to improve. Review of Systems - Review of Systems ENT: negative: Ear Pain, Ear Discharge, Nose Pain, Nose Discharge, Nose Congestion, Mouth Pain, Mouth Swelling, Throat Pain, Throat Swelling, Other Respiratory: negative: Cough, Dry, Shortness of Breath, Hemoptysis, SOB with Excertion, Pleuritic Pain, Sputum, Wheezing Cardiovascular: negative: chest pain, palpitations, orthopnea, paroxysmal nocturnal dyspnea, edema, light headedness, other Gastrointestinal: negative: Nausea, Vomiting, Abdominal Pain, Diarrhea, Constipation, Melena, Hematochezia, Other Genitourinary: negative: Dysuria, Frequency, Incontinence, Hematuria, Retention , Other Musculoskeletal: negative: Neck Pain, Shoulder Pain, Arm Pain, Back Pain, Hand Pain, Leg Pain, Foot Pain, Other Skin: negative: Rash, Lesions, Jordan, Bruising, Other - Medications/Allergies Allergies/Adverse Reactions: Allergies Allergy/AdvReac Type Severity Reaction Status Date / Time No Known Allergies Allergy Verified 03/16/18 14:48 Medications: Current Medications Acetaminophen (Tylenol) 650 mg PO Q4H PRN PRN Reason: Headache/Fever or Pain Hydrocodone Bitart/Acetaminophen ([place] 5/325) 1 tab PO Q4H PRN PRN Reason: Moderate Pain (4-6) Artificial Tears (Tears Renewed 15ml Bottle) 0 drop EA EYE PRN PRN PRN Reason: Dry Eyes Buspirone HCl (Buspar) 7.5 mg PO BID [facility] Last Admin: 03/20/18 08:39 Dose: 7.5 mg Clonidine (Catapres) 0.1 mg PO Q4H PRN PRN Reason: Systolic BP > 180 Duloxetine HCl (Cymbalta) 20 mg PO DAILY [facility] Last Admin: 03/20/18 08:39 Dose: 20 mg Enoxaparin Sodium (Lovenox) 40 mg SC 0900 [facility] Last Admin: 03/20/18 08:40 Dose: Not Given Famotidine (Pepcid) 20 mg PO BID [facility] Last Admin: 03/20/18 12:11 Dose: 20 mg Gabapentin (Neurontin) 300 mg PO BID [facility] Last Admin: 03/20/18 08:38 Dose: 300 mg Guaifenesin (Robitussin Sf) 200 mg PO Q4H PRN PRN Reason: Cough Sodium Chloride (Normal Saline 0.9%) 1,000 mls @ 125 mls/hr IV .Q8H [facility] Last Admin: 03/20/18 08:42 Dose: 1,000 mls Loperamide HCl (Imodium) 2 mg PO PRN PRN PRN Reason: Diarrhea/Loose Stools Loratadine (Claritin) 10 mg PO DAILYPRN PRN PRN Reason: Sinus Symptoms Magnesium Hydroxide (Milk Of Magnesium) 30 ml PO DAILYPRN PRN PRN Reason: Constipation Mineral Oil/White Petrolatum (Eucerin Cream) 0 gm TOP BIDPRN PRN PRN Reason: Dry Skin Ondansetron HCl (Zofran Odt) 4 mg PO Q6H PRN PRN Reason: Nausea/Vomiting Ondansetron HCl (Zofran) 4 mg IVP Q6H PRN PRN Reason: Nausea/Vomiting Phenol (Chloraseptic [place] 180 Ml Bot) 0 ml PO PRN PRN PRN Reason: Sore Throat Quetiapine Fumarate (Seroquel) 200 mg PO BID [facility] Last Admin: 03/20/18 08:38 Dose: 200 mg Senna (Senokot) 2 tab PO HSPRN PRN PRN Reason: Constipation Sodium Chloride ([place] Nasal [place] 0.65%) 0 ml EA NARE QIDPRN PRN PRN Reason: Nasal Congestion Zolpidem Tartrate (Ambien) 5 mg PO HSPRN PRN PRN Reason: Insomnia
[2018-03-21] MEDS: Sodium Chloride 0.9% 1,000 ML IV SCH (00:30)
[2018-03-21] MEDS: Gabapentin 300 MG CAP PO SCH ×2 (08:51→21:30)
[2018-03-21] MEDS: busPIRone HCl 5 MG TAB PO SCH ×2 (08:51→21:30)
[2018-03-21] MEDS: Enoxaparin Sodium 40 MG/0.4 ML SYRINGE SC SCH (08:52)
[2018-03-21] MEDS: Famotidine 20 MG TAB PO SCH ×2 (08:52→21:31)
--- NOTE | 2018-03-21 11:47 | PDOC.PN ---
- Subjective Encounter Start Date: 03/21/18 Encounter Start Time: 08:45 Patient seen and examined. No new complaints. No overnight events - Objective Resuscitation Status: Resuscitation Status FULL:Full Resuscitation MAR Reviewed: Yes Vital Signs & Weight: Vital Signs (12 hours) Temp Pulse Resp BP Pulse Ox 03/21/18 08:57 98.3 F 92 16 95 03/21/18 08:37 98.3 F 92 16 128/72 95 Weight Weight 164 lb 14.492 oz I&O: 03/20/18 03/21/18 03/22/18 06:59 06:59 06:59 Intake Total 2400 4575 Balance 2400 4575 Result Diagrams: 03/17/18 03:53 03/17/18 03:53 Phys Exam - Physical Examination Constitutional: NAD HEENT: PERRLA, moist MMs, sclera anicteric Neck: no JVD, supple Respiratory: no wheezing, no rales, no rhonchi Cardiovascular: RRR, no significant murmur, no rub Gastrointestinal: soft, non-tender, no distention, positive bowel sounds Musculoskeletal: no edema, pulses present Neurological: non-focal, normal sensation, moves all 4 limbs Lymphatic: no nodes Psychiatric: normal affect, A&O x 3 Skin: no rash, normal turgor Dx/Plan (1) Acute kidney failure Status: Resolved (2) Homicidal ideation Code(s): R45.850 - HOMICIDAL IDEATIONS Status: Acute (3) Polysubstance abuse Code(s): F19.10 - OTHER PSYCHOACTIVE SUBSTANCE ABUSE, UNCOMPLICATED Status: Acute (4) Rhabdomyolysis Code(s): M62.82 - RHABDOMYOLYSIS Status: Acute (5) Suicidal ideations Code(s): R45.851 - SUICIDAL IDEATIONS Status: Acute (6) Anxiety and depression Code(s): F41.9 - ANXIETY DISORDER, UNSPECIFIED; F32.9 - MAJOR DEPRESSIVE DISORDER, SINGLE EPISODE, UNSPECIFIED Status: Chronic (7) Schizophrenia Code(s): F20.9 - SCHIZOPHRENIA, UNSPECIFIED Status: Chronic (8) Obesity (BMI 30.0-34.9) Code(s): E66.9 - OBESITY, UNSPECIFIED Status: Chronic - Plan cont current plan of care, out of bed/ambulate * DC IVF * CK continue to improve * medication reviewed as below * symptomatic treatment * await [facility] bed availability. Review of Systems - Review of Systems Eyes: negative: Pain, Vision Change, Conjunctivae Inflammation, Eyelid Inflammation, Redness, Other ENT: negative: Ear Pain, Ear Discharge, Nose Pain, Nose Discharge, Nose Congestion, Mouth Pain, Mouth Swelling, Throat Pain, Throat Swelling, Other Respiratory: negative: Cough, Dry, Shortness of Breath, Hemoptysis, SOB with Excertion, Pleuritic Pain, Sputum, Wheezing Cardiovascular: negative: chest pain, palpitations, orthopnea, paroxysmal nocturnal dyspnea, edema, light headedness, other Gastrointestinal: negative: Nausea, Vomiting, Abdominal Pain, Diarrhea, Constipation, Melena, Hematochezia, Other Genitourinary: negative: Dysuria, Frequency, Incontinence, Hematuria, Retention , Other Musculoskeletal: negative: Neck Pain, Shoulder Pain, Arm Pain, Back Pain, Hand Pain, Leg Pain, Foot Pain, Other Skin: negative: Rash, Lesions, Jordan, Bruising, Other - Medications/Allergies Allergies/Adverse Reactions: Allergies Allergy/AdvReac Type Severity Reaction Status Date / Time No Known Allergies Allergy Verified 03/16/18 14:48 Medications: Current Medications Acetaminophen (Tylenol) 650 mg PO Q4H PRN PRN Reason: Headache/Fever or Pain Hydrocodone Bitart/Acetaminophen ([place] 5/325) 1 tab PO Q4H PRN PRN Reason: Moderate Pain (4-6) Artificial Tears (Tears Renewed 15ml Bottle) 0 drop EA EYE PRN PRN PRN Reason: Dry Eyes Buspirone HCl (Buspar) 7.5 mg PO BID [facility] Last Admin: 03/21/18 08:51 Dose: 7.5 mg Clonidine (Catapres) 0.1 mg PO Q4H PRN PRN Reason: Systolic BP > 180 Duloxetine HCl (Cymbalta) 20 mg PO DAILY [facility] Last Admin: 03/21/18 08:52 Dose: 20 mg Enoxaparin Sodium (Lovenox) 40 mg SC 0900 [facility] Last Admin: 03/21/18 08:52 Dose: 40 mg Famotidine (Pepcid) 20 mg PO BID [facility] Last Admin: 03/21/18 08:52 Dose: 20 mg Gabapentin (Neurontin) 300 mg PO BID [facility] Last Admin: 03/21/18 08:51 Dose: 300 mg Guaifenesin (Robitussin Sf) 200 mg PO Q4H PRN PRN Reason: Cough Loperamide HCl (Imodium) 2 mg PO PRN PRN PRN Reason: Diarrhea/Loose Stools Loratadine (Claritin) 10 mg PO DAILYPRN PRN PRN Reason: Sinus Symptoms Magnesium Hydroxide (Milk Of Magnesium) 30 ml PO DAILYPRN PRN PRN Reason: Constipation Mineral Oil/White Petrolatum (Eucerin Cream) 0 gm TOP BIDPRN PRN PRN Reason: Dry Skin Ondansetron HCl (Zofran Odt) 4 mg PO Q6H PRN PRN Reason: Nausea/Vomiting Ondansetron HCl (Zofran) 4 mg IVP Q6H PRN PRN Reason: Nausea/Vomiting Phenol (Chloraseptic [place] 180 Ml Bot) 0 ml PO PRN PRN PRN Reason: Sore Throat Quetiapine Fumarate (Seroquel) 200 mg PO BID [facility] Last Admin: 03/21/18 08:51 Dose: 200 mg Senna (Senokot) 2 tab PO HSPRN PRN PRN Reason: Constipation Sodium Chloride ([place] Nasal [place] 0.65%) 0 ml EA NARE QIDPRN PRN PRN Reason: Nasal Congestion Zolpidem Tartrate (Ambien) 5 mg PO HSPRN PRN PRN Reason: Insomnia
[2018-03-22] MEDS: Gabapentin 300 MG CAP PO SCH ×2 (08:47→21:07)
[2018-03-22] MEDS: Famotidine 20 MG TAB PO SCH ×2 (08:47→21:07)
[2018-03-22] MEDS: busPIRone HCl 5 MG TAB PO SCH ×2 (08:47→21:07)
[2018-03-22] MEDS: Enoxaparin Sodium 40 MG/0.4 ML SYRINGE SC SCH (08:49)
--- NOTE | 2018-03-22 11:56 | PDOC.PN ---
- Subjective Encounter Start Date: 03/22/18 Encounter Start Time: 07:30 Patient seen and examined. No new complaints. No overnight events - Objective Resuscitation Status: Resuscitation Status FULL:Full Resuscitation MAR Reviewed: Yes Vital Signs & Weight: Vital Signs (12 hours) Temp Pulse Resp BP Pulse Ox 03/22/18 08:14 98.3 F 95 16 97 03/22/18 07:50 98.3 F 95 16 108/65 97 03/22/18 04:00 98.2 F 75 18 104/54 L 97 03/22/18 00:00 97.9 F 77 18 121/70 96 Weight Weight 164 lb 14.492 oz I&O: 03/21/18 03/22/18 03/23/18 06:59 06:59 06:59 Intake Total 4575 1180 Balance 4575 1180 Result Diagrams: 03/17/18 03:53 03/17/18 03:53 Phys Exam - Physical Examination Constitutional: NAD HEENT: PERRLA, moist MMs, sclera anicteric Neck: no JVD, supple Respiratory: no wheezing, no rales, no rhonchi Cardiovascular: RRR, no significant murmur, no rub Gastrointestinal: soft, non-tender, no distention, positive bowel sounds Musculoskeletal: no edema, pulses present Neurological: non-focal, normal sensation, moves all 4 limbs Psychiatric: normal affect, A&O x 3 Skin: no rash, normal turgor Dx/Plan (1) Acute kidney failure Status: Resolved (2) Homicidal ideation Code(s): R45.850 - HOMICIDAL IDEATIONS Status: Acute (3) Polysubstance abuse Code(s): F19.10 - OTHER PSYCHOACTIVE SUBSTANCE ABUSE, UNCOMPLICATED Status: Acute (4) Rhabdomyolysis Code(s): M62.82 - RHABDOMYOLYSIS Status: Acute (5) Suicidal ideations Code(s): R45.851 - SUICIDAL IDEATIONS Status: Acute (6) Anxiety and depression Code(s): F41.9 - ANXIETY DISORDER, UNSPECIFIED; F32.9 - MAJOR DEPRESSIVE DISORDER, SINGLE EPISODE, UNSPECIFIED Status: Chronic (7) Schizophrenia Code(s): F20.9 - SCHIZOPHRENIA, UNSPECIFIED Status: Chronic - 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 Review of Systems - Review of Systems Eyes: negative: Pain, Vision Change, Conjunctivae Inflammation, Eyelid Inflammation, Redness, Other ENT: negative: Ear Pain, Ear Discharge, Nose Pain, Nose Discharge, Nose Congestion, Mouth Pain, Mouth Swelling, Throat Pain, Throat Swelling, Other Respiratory: negative: Cough, Dry, Shortness of Breath, Hemoptysis, SOB with Excertion, Pleuritic Pain, Sputum, Wheezing Cardiovascular: negative: chest pain, palpitations, orthopnea, paroxysmal nocturnal dyspnea, edema, light headedness, other Gastrointestinal: negative: Nausea, Vomiting, Abdominal Pain, Diarrhea, Constipation, Melena, Hematochezia, Other Genitourinary: negative: Dysuria, Frequency, Incontinence, Hematuria, Retention , Other Musculoskeletal: negative: Neck Pain, Shoulder Pain, Arm Pain, Back Pain, Hand Pain, Leg Pain, Foot Pain, Other Skin: negative: Rash, Lesions, Jordan, Bruising, Other - Medications/Allergies Allergies/Adverse Reactions: Allergies Allergy/AdvReac Type Severity Reaction Status Date / Time No Known Allergies Allergy Verified 03/16/18 14:48 Medications: Current Medications Acetaminophen (Tylenol) 650 mg PO Q4H PRN PRN Reason: Headache/Fever or Pain Hydrocodone Bitart/Acetaminophen ([place] 5/325) 1 tab PO Q4H PRN PRN Reason: Moderate Pain (4-6) Artificial Tears (Tears Renewed 15ml Bottle) 0 drop EA EYE PRN PRN PRN Reason: Dry Eyes Buspirone HCl (Buspar) 7.5 mg PO BID [facility] Last Admin: 03/22/18 08:47 Dose: 7.5 mg Clonidine (Catapres) 0.1 mg PO Q4H PRN PRN Reason: Systolic BP > 180 Duloxetine HCl (Cymbalta) 20 mg PO DAILY [facility] Last Admin: 03/22/18 08:47 Dose: 20 mg Enoxaparin Sodium (Lovenox) 40 mg SC 0900 [facility] Last Admin: 03/22/18 08:49 Dose: Not Given Famotidine (Pepcid) 20 mg PO BID [facility] Last Admin: 03/22/18 08:47 Dose: 20 mg Gabapentin (Neurontin) 300 mg PO BID [facility] Last Admin: 03/22/18 08:47 Dose: 300 mg Guaifenesin (Robitussin Sf) 200 mg PO Q4H PRN PRN Reason: Cough Loperamide HCl (Imodium) 2 mg PO PRN PRN PRN Reason: Diarrhea/Loose Stools Loratadine (Claritin) 10 mg PO DAILYPRN PRN PRN Reason: Sinus Symptoms Magnesium Hydroxide (Milk Of Magnesium) 30 ml PO DAILYPRN PRN PRN Reason: Constipation Mineral Oil/White Petrolatum (Eucerin Cream) 0 gm TOP BIDPRN PRN PRN Reason: Dry Skin Ondansetron HCl (Zofran Odt) 4 mg PO Q6H PRN PRN Reason: Nausea/Vomiting Ondansetron HCl (Zofran) 4 mg IVP Q6H PRN PRN Reason: Nausea/Vomiting Phenol (Chloraseptic [place] 180 Ml Bot) 0 ml PO PRN PRN PRN Reason: Sore Throat Quetiapine Fumarate (Seroquel) 200 mg PO BID [facility] Last Admin: 03/22/18 08:47 Dose: 200 mg Senna (Senokot) 2 tab PO HSPRN PRN PRN Reason: Constipation Sodium Chloride ([place] Nasal [place] 0.65%) 0 ml EA NARE QIDPRN PRN PRN Reason: Nasal Congestion Zolpidem Tartrate (Ambien) 5 mg PO HSPRN PRN PRN Reason: Insomnia
[2018-03-23] MEDS: Gabapentin 300 MG CAP PO SCH ×2 (08:21→20:14)
[2018-03-23] MEDS: Enoxaparin Sodium 40 MG/0.4 ML SYRINGE SC SCH (08:21)
[2018-03-23] MEDS: busPIRone HCl 5 MG TAB PO SCH ×2 (08:21→20:13)
[2018-03-23] MEDS: Famotidine 20 MG TAB PO SCH ×2 (08:21→20:14)
--- NOTE | 2018-03-23 11:53 | PDOC.PN ---
- Subjective Encounter Start Date: 03/23/18 Encounter Start Time: 08:30 Patient seen and examined. No new complaints. No overnight events - Objective Resuscitation Status: Resuscitation Status FULL:Full Resuscitation MAR Reviewed: Yes Vital Signs & Weight: Vital Signs (12 hours) Temp Pulse Resp BP Pulse Ox 03/23/18 08:00 98.2 F 92 20 107/65 93 L Weight Weight 164 lb 14.492 oz I&O: 03/22/18 03/23/18 03/24/18 06:59 06:59 06:59 Intake Total 1180 720 Balance 1180 720 Result Diagrams: 03/17/18 03:53 03/17/18 03:53 Phys Exam - Physical Examination Constitutional: NAD HEENT: PERRLA, moist MMs, sclera anicteric Neck: no JVD, supple Respiratory: no wheezing, no rales, no rhonchi Cardiovascular: RRR, no significant murmur, no rub Gastrointestinal: soft, non-tender, no distention, positive bowel sounds Musculoskeletal: no edema, pulses present Neurological: non-focal, normal sensation, moves all 4 limbs Psychiatric: normal affect, A&O x 3 Skin: no rash, normal turgor Dx/Plan (1) Acute kidney failure Status: Resolved (2) Homicidal ideation Code(s): R45.850 - HOMICIDAL IDEATIONS Status: Acute (3) Polysubstance abuse Code(s): F19.10 - OTHER PSYCHOACTIVE SUBSTANCE ABUSE, UNCOMPLICATED Status: Acute (4) Rhabdomyolysis Code(s): M62.82 - RHABDOMYOLYSIS Status: Acute (5) Suicidal ideations Code(s): R45.851 - SUICIDAL IDEATIONS Status: Acute (6) Anxiety and depression Code(s): F41.9 - ANXIETY DISORDER, UNSPECIFIED; F32.9 - MAJOR DEPRESSIVE DISORDER, SINGLE EPISODE, UNSPECIFIED Status: Chronic (7) Schizophrenia Code(s): F20.9 - SCHIZOPHRENIA, UNSPECIFIED Status: Chronic - 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 Review of Systems - Review of Systems Eyes: negative: Pain, Vision Change, Conjunctivae Inflammation, Eyelid Inflammation, Redness, Other ENT: negative: Ear Pain, Ear Discharge, Nose Pain, Nose Discharge, Nose Congestion, Mouth Pain, Mouth Swelling, Throat Pain, Throat Swelling, Other Respiratory: negative: Cough, Dry, Shortness of Breath, Hemoptysis, SOB with Excertion, Pleuritic Pain, Sputum, Wheezing Cardiovascular: negative: chest pain, palpitations, orthopnea, paroxysmal nocturnal dyspnea, edema, light headedness, other Gastrointestinal: negative: Nausea, Vomiting, Abdominal Pain, Diarrhea, Constipation, Melena, Hematochezia, Other Genitourinary: negative: Dysuria, Frequency, Incontinence, Hematuria, Retention , Other Musculoskeletal: negative: Neck Pain, Shoulder Pain, Arm Pain, Back Pain, Hand Pain, Leg Pain, Foot Pain, Other Skin: negative: Rash, Lesions, Jordan, Bruising, Other - Medications/Allergies Allergies/Adverse Reactions: Allergies Allergy/AdvReac Type Severity Reaction Status Date / Time No Known Allergies Allergy Verified 03/16/18 14:48 Medications: Current Medications Acetaminophen (Tylenol) 650 mg PO Q4H PRN PRN Reason: Headache/Fever or Pain Last Admin: 03/23/18 11:03 Dose: 650 mg Hydrocodone Bitart/Acetaminophen ([place] 5/325) 1 tab PO Q4H PRN PRN Reason: Moderate Pain (4-6) Artificial Tears (Tears Renewed 15ml Bottle) 0 drop EA EYE PRN PRN PRN Reason: Dry Eyes Buspirone HCl (Buspar) 7.5 mg PO BID [facility] Last Admin: 03/23/18 08:21 Dose: 7.5 mg Clonidine (Catapres) 0.1 mg PO Q4H PRN PRN Reason: Systolic BP > 180 Duloxetine HCl (Cymbalta) 20 mg PO DAILY [facility] Last Admin: 03/23/18 08:21 Dose: 20 mg Enoxaparin Sodium (Lovenox) 40 mg SC 0900 [facility] Last Admin: 03/23/18 08:21 Dose: Not Given Famotidine (Pepcid) 20 mg PO BID [facility] Last Admin: 03/23/18 08:21 Dose: 20 mg Gabapentin (Neurontin) 300 mg PO BID [facility] Last Admin: 03/23/18 08:21 Dose: 300 mg Guaifenesin (Robitussin Sf) 200 mg PO Q4H PRN PRN Reason: Cough Loperamide HCl (Imodium) 2 mg PO PRN PRN PRN Reason: Diarrhea/Loose Stools Loratadine (Claritin) 10 mg PO DAILYPRN PRN PRN Reason: Sinus Symptoms Magnesium Hydroxide (Milk Of Magnesium) 30 ml PO DAILYPRN PRN PRN Reason: Constipation Mineral Oil/White Petrolatum (Eucerin Cream) 0 gm TOP BIDPRN PRN PRN Reason: Dry Skin Ondansetron HCl (Zofran Odt) 4 mg PO Q6H PRN PRN Reason: Nausea/Vomiting Ondansetron HCl (Zofran) 4 mg IVP Q6H PRN PRN Reason: Nausea/Vomiting Phenol (Chloraseptic [place] 180 Ml Bot) 0 ml PO PRN PRN PRN Reason: Sore Throat Quetiapine Fumarate (Seroquel) 200 mg PO BID [facility] Last Admin: 03/23/18 08:21 Dose: 200 mg Senna (Senokot) 2 tab PO HSPRN PRN PRN Reason: Constipation Sodium Chloride ([place] Nasal [place] 0.65%) 0 ml EA NARE QIDPRN PRN PRN Reason: Nasal Congestion Zolpidem Tartrate (Ambien) 5 mg PO HSPRN PRN PRN Reason: Insomnia
[2018-03-24] MEDS: busPIRone HCl 5 MG TAB PO SCH ×2 (09:29→20:46)
[2018-03-24] MEDS: Enoxaparin Sodium 40 MG/0.4 ML SYRINGE SC SCH (09:30)
[2018-03-24] MEDS: Gabapentin 300 MG CAP PO SCH ×2 (09:30→20:32)
[2018-03-24] MEDS: Famotidine 20 MG TAB PO SCH ×2 (09:30→20:32)
--- NOTE | 2018-03-24 11:27 | PDOC.PN ---
- Subjective Encounter Start Date: 03/24/18 Encounter Start Time: 08:50 Patient seen and examined. No new complaints. No overnight events - Objective Resuscitation Status: Resuscitation Status FULL:Full Resuscitation MAR Reviewed: Yes Vital Signs & Weight: Vital Signs (12 hours) Temp Pulse Resp BP BP Pulse Ox 03/24/18 11:23 98.0 F 83 20 128/69 95 03/24/18 08:00 97.7 F 94 18 03/24/18 07:22 97.7 F 94 18 112/70 97 Weight Weight 164 lb 14.492 oz I&O: 03/23/18 03/24/18 03/25/18 06:59 06:59 06:59 Intake Total 720 800 240 Balance 720 800 240 Result Diagrams: 03/17/18 03:53 03/17/18 03:53 Phys Exam - Physical Examination Constitutional: NAD HEENT: PERRLA, moist MMs, sclera anicteric Neck: no JVD, supple Respiratory: no wheezing, no rales, no rhonchi Cardiovascular: RRR, no significant murmur, no rub Gastrointestinal: soft, non-tender, no distention, positive bowel sounds Musculoskeletal: no edema, pulses present Neurological: non-focal, normal sensation, moves all 4 limbs Lymphatic: no nodes Psychiatric: normal affect, A&O x 3 Skin: no rash, normal turgor Dx/Plan (1) Acute kidney failure Status: Resolved (2) Homicidal ideation Code(s): R45.850 - HOMICIDAL IDEATIONS Status: Acute (3) Polysubstance abuse Code(s): F19.10 - OTHER PSYCHOACTIVE SUBSTANCE ABUSE, UNCOMPLICATED Status: Acute (4) Rhabdomyolysis Code(s): M62.82 - RHABDOMYOLYSIS Status: Acute (5) Suicidal ideations Code(s): R45.851 - SUICIDAL IDEATIONS Status: Acute (6) Anxiety and depression Code(s): F41.9 - ANXIETY DISORDER, UNSPECIFIED; F32.9 - MAJOR DEPRESSIVE DISORDER, SINGLE EPISODE, UNSPECIFIED Status: Chronic (7) Schizophrenia Code(s): F20.9 - SCHIZOPHRENIA, UNSPECIFIED Status: Chronic - Plan 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 Review of Systems - Review of Systems Eyes: negative: Pain, Vision Change, Conjunctivae Inflammation, Eyelid Inflammation, Redness, Other ENT: negative: Ear Pain, Ear Discharge, Nose Pain, Nose Discharge, Nose Congestion, Mouth Pain, Mouth Swelling, Throat Pain, Throat Swelling, Other Respiratory: negative: Cough, Dry, Shortness of Breath, Hemoptysis, SOB with Excertion, Pleuritic Pain, Sputum, Wheezing Cardiovascular: negative: chest pain, palpitations, orthopnea, paroxysmal nocturnal dyspnea, edema, light headedness, other Gastrointestinal: negative: Nausea, Vomiting, Abdominal Pain, Diarrhea, Constipation, Melena, Hematochezia, Other Genitourinary: negative: Dysuria, Frequency, Incontinence, Hematuria, Retention , Other Musculoskeletal: negative: Neck Pain, Shoulder Pain, Arm Pain, Back Pain, Hand Pain, Leg Pain, Foot Pain, Other Skin: negative: Rash, Lesions, Jordan, Bruising, Other - Medications/Allergies Allergies/Adverse Reactions: Allergies Allergy/AdvReac Type Severity Reaction Status Date / Time No Known Allergies Allergy Verified 03/16/18 14:48 Medications: Current Medications Acetaminophen (Tylenol) 650 mg PO Q4H PRN PRN Reason: Headache/Fever or Pain Last Admin: 03/23/18 11:03 Dose: 650 mg Hydrocodone Bitart/Acetaminophen ([place] 5/325) 1 tab PO Q4H PRN PRN Reason: Moderate Pain (4-6) Artificial Tears (Tears Renewed 15ml Bottle) 0 drop EA EYE PRN PRN PRN Reason: Dry Eyes Buspirone HCl (Buspar) 7.5 mg PO BID [facility] Last Admin: 03/24/18 09:29 Dose: 7.5 mg Clonidine (Catapres) 0.1 mg PO Q4H PRN PRN Reason: Systolic BP > 180 Duloxetine HCl (Cymbalta) 20 mg PO DAILY [facility] Last Admin: 03/24/18 09:29 Dose: 20 mg Enoxaparin Sodium (Lovenox) 40 mg SC 0900 [facility] Last Admin: 03/24/18 09:30 Dose: Not Given Famotidine (Pepcid) 20 mg PO BID [facility] Last Admin: 03/24/18 09:30 Dose: 20 mg Gabapentin (Neurontin) 300 mg PO BID [facility] Last Admin: 03/24/18 09:30 Dose: 300 mg Guaifenesin (Robitussin Sf) 200 mg PO Q4H PRN PRN Reason: Cough Loperamide HCl (Imodium) 2 mg PO PRN PRN PRN Reason: Diarrhea/Loose Stools Loratadine (Claritin) 10 mg PO DAILYPRN PRN PRN Reason: Sinus Symptoms Magnesium Hydroxide (Milk Of Magnesium) 30 ml PO DAILYPRN PRN PRN Reason: Constipation Mineral Oil/White Petrolatum (Eucerin Cream) 0 gm TOP BIDPRN PRN PRN Reason: Dry Skin Ondansetron HCl (Zofran Odt) 4 mg PO Q6H PRN PRN Reason: Nausea/Vomiting Ondansetron HCl (Zofran) 4 mg IVP Q6H PRN PRN Reason: Nausea/Vomiting Phenol (Chloraseptic [place] 180 Ml Bot) 0 ml PO PRN PRN PRN Reason: Sore Throat Quetiapine Fumarate (Seroquel) 200 mg PO BID [facility] Last Admin: 03/24/18 09:28 Dose: 200 mg Senna (Senokot) 2 tab PO HSPRN PRN PRN Reason: Constipation Sodium Chloride ([place] Nasal [place] 0.65%) 0 ml EA NARE QIDPRN PRN PRN Reason: Nasal Congestion Zolpidem Tartrate (Ambien) 5 mg PO HSPRN PRN PRN Reason: Insomnia
--- NOTE | 2018-03-24 20:59 | EKG ---
Test Reason : SI Blood Pressure : / mmHG Vent. Rate : 076 BPM Atrial Rate : 076 BPM P-R Int : 126 ms QRS Dur : 088 ms QT Int : 414 ms P-R-T Axes : 057 081 029 degrees QTc Int : 465 ms Normal sinus rhythm with sinus arrhythmia Normal ECG Confirmed by BRIANNA MENJIVAR, CARLOS ([id number]), editor sound BHAVESH LYLE ([id number]) on 03/24/2018 8:59:08 PM Referred By: SEBASTIAN REED Confirmed By:CARLOS REED MD
[2018-03-25] MEDS: Gabapentin 300 MG CAP PO SCH ×2 (08:58→20:11)
[2018-03-25] MEDS: busPIRone HCl 5 MG TAB PO SCH ×2 (08:59→20:09)
[2018-03-25] MEDS: Famotidine 20 MG TAB PO SCH ×2 (09:05→20:11)
[2018-03-25] MEDS: Enoxaparin Sodium 40 MG/0.4 ML SYRINGE SC SCH (09:05)
--- NOTE | 2018-03-25 09:33 | PDOC.PN ---
- Subjective Encounter Start Date: 03/25/18 Encounter Start Time: 08:10 Patient seen and examined. No new complaints. No overnight events - Objective Resuscitation Status: Resuscitation Status FULL:Full Resuscitation MAR Reviewed: Yes Vital Signs & Weight: Vital Signs (12 hours) Temp Pulse Resp BP Pulse Ox 03/25/18 08:00 98.4 F 91 18 98/58 L 96 Weight Weight 164 lb 14.492 oz I&O: 03/24/18 03/25/18 03/26/18 06:59 06:59 06:59 Intake Total 800 3520 Balance 800 3520 Result Diagrams: 03/17/18 03:53 03/17/18 03:53 Phys Exam - Physical Examination Constitutional: NAD HEENT: PERRLA, moist MMs, sclera anicteric Neck: no JVD, supple Respiratory: no wheezing, no rales, no rhonchi Cardiovascular: RRR, no significant murmur, no rub Gastrointestinal: soft, non-tender, no distention, positive bowel sounds Musculoskeletal: no edema, pulses present Neurological: non-focal, normal sensation, moves all 4 limbs Lymphatic: no nodes Psychiatric: normal affect, A&O x 3 Skin: no rash, normal turgor Dx/Plan (1) Acute kidney failure Status: Resolved (2) Homicidal ideation Code(s): R45.850 - HOMICIDAL IDEATIONS Status: Acute (3) Polysubstance abuse Code(s): F19.10 - OTHER PSYCHOACTIVE SUBSTANCE ABUSE, UNCOMPLICATED Status: Acute (4) Rhabdomyolysis Code(s): M62.82 - RHABDOMYOLYSIS Status: Acute (5) Suicidal ideations Code(s): R45.851 - SUICIDAL IDEATIONS Status: Acute (6) Anxiety and depression Code(s): F41.9 - ANXIETY DISORDER, UNSPECIFIED; F32.9 - MAJOR DEPRESSIVE DISORDER, SINGLE EPISODE, UNSPECIFIED Status: Chronic (7) Schizophrenia Code(s): F20.9 - SCHIZOPHRENIA, UNSPECIFIED Status: Chronic - Plan cont current plan of care, director of social services * as per nursing, with S.I. pt can not go outside for walk, so updated to sitter about that rule * medication reviewed as below * symptomatic treatment * await [facility] bed. Review of Systems - Review of Systems Eyes: negative: Pain, Vision Change, Conjunctivae Inflammation, Eyelid Inflammation, Redness, Other ENT: negative: Ear Pain, Ear Discharge, Nose Pain, Nose Discharge, Nose Congestion, Mouth Pain, Mouth Swelling, Throat Pain, Throat Swelling, Other Respiratory: negative: Cough, Dry, Shortness of Breath, Hemoptysis, SOB with Excertion, Pleuritic Pain, Sputum, Wheezing Cardiovascular: negative: chest pain, palpitations, orthopnea, paroxysmal nocturnal dyspnea, edema, light headedness, other Gastrointestinal: negative: Nausea, Vomiting, Abdominal Pain, Diarrhea, Constipation, Melena, Hematochezia, Other Genitourinary: negative: Dysuria, Frequency, Incontinence, Hematuria, Retention , Other Musculoskeletal: negative: Neck Pain, Shoulder Pain, Arm Pain, Back Pain, Hand Pain, Leg Pain, Foot Pain, Other Skin: negative: Rash, Lesions, Jordan, Bruising, Other - Medications/Allergies Allergies/Adverse Reactions: Allergies Allergy/AdvReac Type Severity Reaction Status Date / Time No Known Allergies Allergy Verified 03/16/18 14:48 Medications: Current Medications Acetaminophen (Tylenol) 650 mg PO Q4H PRN PRN Reason: Headache/Fever or Pain Last Admin: 03/23/18 11:03 Dose: 650 mg Hydrocodone Bitart/Acetaminophen ([place] 5/325) 1 tab PO Q4H PRN PRN Reason: Moderate Pain (4-6) Artificial Tears (Tears Renewed 15ml Bottle) 0 drop EA EYE PRN PRN PRN Reason: Dry Eyes Buspirone HCl (Buspar) 7.5 mg PO BID [facility] Last Admin: 03/25/18 08:59 Dose: 7.5 mg Clonidine (Catapres) 0.1 mg PO Q4H PRN PRN Reason: Systolic BP > 180 Duloxetine HCl (Cymbalta) 20 mg PO DAILY [facility] Last Admin: 03/25/18 09:00 Dose: 20 mg Enoxaparin Sodium (Lovenox) 40 mg SC 0900 [facility] Last Admin: 03/25/18 09:05 Dose: Not Given Famotidine (Pepcid) 20 mg PO BID [facility] Last Admin: 03/25/18 09:05 Dose: Not Given Gabapentin (Neurontin) 300 mg PO BID [facility] Last Admin: 03/25/18 08:58 Dose: 300 mg Guaifenesin (Robitussin Sf) 200 mg PO Q4H PRN PRN Reason: Cough Loperamide HCl (Imodium) 2 mg PO PRN PRN PRN Reason: Diarrhea/Loose Stools Loratadine (Claritin) 10 mg PO DAILYPRN PRN PRN Reason: Sinus Symptoms Magnesium Hydroxide (Milk Of Magnesium) 30 ml PO DAILYPRN PRN PRN Reason: Constipation Mineral Oil/White Petrolatum (Eucerin Cream) 0 gm TOP BIDPRN PRN PRN Reason: Dry Skin Ondansetron HCl (Zofran Odt) 4 mg PO Q6H PRN PRN Reason: Nausea/Vomiting Ondansetron HCl (Zofran) 4 mg IVP Q6H PRN PRN Reason: Nausea/Vomiting Phenol (Chloraseptic [place] 180 Ml Bot) 0 ml PO PRN PRN PRN Reason: Sore Throat Quetiapine Fumarate (Seroquel) 200 mg PO BID [facility] Last Admin: 03/25/18 09:00 Dose: 200 mg Senna (Senokot) 2 tab PO HSPRN PRN PRN Reason: Constipation Sodium Chloride ([place] Nasal [place] 0.65%) 0 ml EA NARE QIDPRN PRN PRN Reason: Nasal Congestion Zolpidem Tartrate (Ambien) 5 mg PO HSPRN PRN PRN Reason: Insomnia
[2018-03-25 21:59] VITALS: TEMP 97.8
[2018-03-26 07:52] VITALS: BP 109/70
[2018-03-26] MEDS: busPIRone HCl 5 MG TAB PO SCH ×2 (09:45→19:37)
[2018-03-26] MEDS: Gabapentin 300 MG CAP PO SCH ×2 (09:46→19:37)
[2018-03-26] MEDS: Famotidine 20 MG TAB PO SCH ×2 (09:46→19:38)
[2018-03-26] MEDS: Enoxaparin Sodium 40 MG/0.4 ML SYRINGE SC SCH (09:47)
--- NOTE | 2018-03-26 12:28 | DIS ---
DATE OF ADMISSION: 03/16/2018 DATE OF DISCHARGE: 03/26/2018 DISCHARGE DISPOSITION: [facility]. PRIMARY DISCHARGE DIAGNOSES: 1. Suicidal and homicidal ideation. 2. Rhabdomyolysis corrected. 3. Acute kidney failure, improved. SECONDARY DISCHARGE DIAGNOSES: Polysubstance abuse, anxiety, depression, schizophrenia, obesity with BMI 33. PRIMARY PROCEDURE/OPERATION: None. RADIOLOGICAL INVESTIGATION: None. SIGNIFICANT LABORATORY DATA: WBC 3.8, hemoglobin 11.7, platelet 194. Sodium 140, creatinine 0.94. CK 531. Urinalysis normal. Urine drug screen positive for cocaine. DISCHARGE MEDICATIONS: The patient is discharged to inpatient psychiatric facility and they will dec alejandro about his final treatment, currently on the buspirone 7.5 mg p.o. b.i.d., Cymbalta 60 mg p.o. b.i .d., gabapentin 300 mg p.o. b.i.d., Seroquel 200 mg p.o. b.i.d. CONTRAINDICATIONS: None. CODE STATUS: FULL CODE. INPATIENT CONSULTANTS: was following while in hospital. TEST RESULTS PENDING ON DISCHARGE: None. ALLERGIES: No known drug allergy. DISCHARGE PLAN: Post hospital, the patient is discharged to [facility]. Subsequently the patient will follow up with primary care physician. HOSPITAL COURSE: A 28-year-old male who was admitted on 03/16/2018. Please see my HPI for further d etails. The patient was brought for medical clearance to go to psych facility for his suicidal and h omicidal ideation, but he was found with acute kidney failure and rhabdomyolysis that is why he requi red admission. We gave him IV fluid and his rhabdomyolysis, improved. His acute kidney failure impr tiago. The patient was planned for discharge on 03/20/2018 but since then patient the was waiting for [facility] bed availability. Finally [facility] bed availability is opened today and t he patient is planned for discharge. While in hospital, patient was hemodynamically stable, ambulato ry, tolerating p.o. well. The patient is seen and examined at bedside today. VITAL SIGNS: Currently, temperature 97.8, pulse 91, respiratory rate 16, saturation 96% on room air, blood pressure 109/70, weight 164 pounds. GENERAL: The patient is currently alert, awake, no obvious acute distress. HEAD: Normocephalic, atraumatic. LUNGS: Clear to auscultation without any rhonchi. CARDIAC: S1, S2 regular without any murmur. ABDOMEN: Soft and benign without any tenderness. EXTREMITIES: No edema. NEUROLOGIC: Nonfocal examination. The patient is medically stable for discharge today. All review of system reviewed and negative.
== END 2018-03-26 20:01 | DRG 683 ==
LOC: ERS 09:08 → T4-A 12:00
PROVIDERS: ADMIT Internal Medicine; ATTEND Internal Medicine
DX: N17.9 Acute kidney failure, unspecified (principal); M62.82 Rhabdomyolysis; R45.851 Suicidal ideations; E87.1 Hypo-osmolality and hyponatremia; F14.10 Cocaine abuse, uncomplicated; E86.0 Dehydration; R45.850 Homicidal ideations; F20.9 Schizophrenia, unspecified; D57.3 Sickle-cell trait; F41.9 Anxiety disorder, unspecified; F32.9 Major depressive disorder, single episode, unspecified; F17.210 Nicotine dependence, cigarettes, uncomplicated; E66.9 Obesity, unspecified; Z68.33 Body mass index [BMI] 33.0-33.9, adult; Z91.5 Personal history of self-harm; Z79.899 Other long term (current) drug therapy
CPT/HCPCS: 36415; 36416; 80048; 80053; 80306; 80307; 81003; 82550; 84443; 85025; 93005; 96360; J1650

== ENCOUNTER 2018-06-12 03:59 | Emergency (ER) | payer OTHER, SELFPAY ==
[2018-06-12] MEDS ORDERED: Dexamethasone 10 MG/ML VIAL ONE (04:58)
[2018-06-12] MEDS ORDERED: Albuterol Sulfate 2.5 mg/3 ml Neb ONE (05:04)
--- NOTE | 2018-06-12 08:43 | RAD ---
PORTABLE CHEST 1 VIEW: DATE: 06/12/2018. TIME: 3:30 a.m. HISTORY: Cough. FINDINGS: Comparison is made with the exam of 10/05/2017. The heart size is normal. The lungs are expanded without focal areas of consolidation, pneumothorace s, or pleural effusions. IMPRESSION: No radiographic evidence of acute cardiopulmonary process. POS: [facility]
== END 2018-06-12 05:29 | disposition home or self-care (01) ==
LOC: ERS 03:59
DX: J45.901 Unspecified asthma with (acute) exacerbation (principal); Z71.6 Tobacco abuse counseling; F41.9 Anxiety disorder, unspecified; F31.9 Bipolar disorder, unspecified; F20.9 Schizophrenia, unspecified; F17.210 Nicotine dependence, cigarettes, uncomplicated
CPT/HCPCS: 71045; 99406; J1100; J7611